=== PATIENT | male | born 1960 | race Caucasian/White ===

== ENCOUNTER 2017-11-18 01:34 | Outpatient (CLI) | payer BC, MEDICARE ==
[~2017-11-18 01:34] MED LIST: ALB0.5UD IH; CHOL500050 PO; COU1T PO; GABA600T2 PO; MORP15TA PO; MORP30TA PO; NADO40TA PO; OMEP40CA37 PO; ONDA4TAB11 PO; PHE12.5T PO; POTA20TA19 PO; VITA400C67 PO; ZINC50TA60 PO; glyburide PO; lasix PO; metformin PO; spironolactone PO; vitamin A PO
== END 2017-11-18 23:59 | disposition home or self-care (01) ==
LOC: DIABETIC 01:34
PROVIDERS: ATTEND General Practice
DX: E11.65 Type 2 diabetes mellitus with hyperglycemia (principal); I10 Essential (primary) hypertension; Z85.05 Personal history of malignant neoplasm of liver
CPT/HCPCS: G0108

== ENCOUNTER 2019-02-24 09:52 | Inpatient (IN) | payer BC, MEDICARE, OTHER | END 2019-02-26 13:00 | disposition home or self-care (01) | LOC: ER 09:52 → ED HOLD 12:12 → PCU 3S 19:17 ==

== ENCOUNTER 2023-02-13 10:48 | Day surgery (SDC) | payer OTHER ==
[~2023-02-13] VITALS: Ht 180.3 cm; Wt 90.3 kg
[2023-02-13] VITALS (21 sets, daily range): BP systolic 131–181; BP diastolic 51–102
[~2023-02-13 10:48] MED LIST changes: -ALB0.5UD IH; +AMLO5TAB16 PO; +ASPI-611 PO; -COU1T PO; -GABA600T2 PO; +HYDR100T27 PO; +HYDR25TA4 PO; +LOSA50TA64 PO; +METF-900 PO; +MORP-92 PO; -MORP30TA PO; +MULT-620 PO; +MYCO250C46 PO; -NADO40TA PO; -OMEP40CA37 PO; +ONDA-103 PO; -ONDA4TAB11 PO; +PANT40TA54 PO; -PHE12.5T PO; -POTA20TA19 PO; +ROSU5TAB PO; +TACR1CAP PO; -VITA400C67 PO; -ZINC50TA60 PO; -glyburide PO; -lasix PO; -metformin PO; -spironolactone PO; -vitamin A PO
[2023-02-13] MEDS ORDERED: ASCO500C17 PO (11:34)
[2023-02-13] MEDS ORDERED: FLUD0.1T PO (11:34)
[2023-02-13] MEDS ORDERED: LIDO1ADH67 TOP (11:34)
[2023-02-13] MEDS ORDERED: CLON0.1T2 PO (11:34)
[2023-02-13] MEDS ORDERED: ZINC50CA2 PO (11:34)
[2023-02-13] MEDS ORDERED: GABA600T13 PO (11:34)
[2023-02-13] MEDS ORDERED: FURO20TA4 PO (11:34)
[2023-02-13] MEDS ORDERED: ONDA4TAB12 PO (11:34)
[2023-02-13] MEDS ORDERED: AMLO10TA48 PO (11:35)
[2023-02-13 11:43] LABS: BASOPHILS # (AUTO) 0.1 X10'3 (0-0.2); BASOPHILS % (AUTO) 0.9 % (0-1); EOSINOPHILS # (AUTO) 0.5 X10'3 (0-0.9); EOSINOPHILS % (AUTO) 7.1 % (0-6); HEMATOCRIT 34.6 % (42.0-52.0); HEMOGLOBIN 11.4 g/dl (14.0-17.9); LYMPHOCYTES # (AUTO) 1.7 X10'3 (1.1-4.8); LYMPHOCYTES % (AUTO) 21.7 % (21-51); MEAN CORPUSCULAR HEMOGLOBIN 27.2 PG (27.0-31.0); MEAN CORPUSCULAR HGB CONC 32.9 g/dL (33.0-36.5); MEAN CORPUSCULAR VOLUME 82.8 FL (78-98); MEAN PLATELET VOLUME 7.2 FL (7.4-10.4); MONOCYTES # (AUTO) 0.7 X10'3 (0-0.9); MONOCYTES % (AUTO) 8.8 % (2-12); NEUTROPHILS # (AUTO) 4.7 X10'3 (1.8-7.7); NEUTROPHILS % (AUTO) 61.5 % (42-75); PLATELET COUNT 328 X10'3 (140-440); RED BLOOD COUNT 4.17 X10'6 (4.70-6.10); RED CELL DISTRIBUTION WIDTH 14.4 % (11.5-14.5); WHITE BLOOD COUNT 7.7 X10'3 (4.5-11.0)
[2023-02-13 11:55] LABS: APTT 26 SECONDS (22-32)
[2023-02-13] MEDS ORDERED: normal saline 1000ml 1,000 ML IV SCH (12:00)
[2023-02-13] MEDS ORDERED: LIDOcaine 1% 30ml preserv. free vial ONE (12:12)
[2023-02-13] MEDS ORDERED: fentaNYL/PF 50MCG/1 ML 2ML syringe ONE (12:20)
[2023-02-13] MEDS ORDERED: midazolam 1 mg/ML 2ml injection ONE (12:20)
[2023-02-13] MEDS ORDERED: gelatin sponge, absorbable (Gelfoam 12-7MM) sponge TP ONE (12:45)
== END 2023-02-13 16:40 | disposition home or self-care (01) ==
LOC: SSTAY O 10:48
PROVIDERS: ATTEND Radiology Vascular & Interventional Radiology
DX: E11.22 Type 2 diabetes mellitus with diabetic chronic kidney disease (principal); I12.9 Hypertensive chronic kidney disease with stage 1 through stage 4 chronic kidney disease, or unspecified chronic kidney disease; N18.30 Chronic kidney disease, stage 3 unspecified; R80.9 Proteinuria, unspecified; E66.9 Obesity, unspecified; Z68.27 Body mass index [BMI] 27.0-27.9, adult; Z87.891 Personal history of nicotine dependence; Z94.4 Liver transplant status; Z79.82 Long term (current) use of aspirin; Z79.899 Other long term (current) drug therapy; Z82.49 Family history of ischemic heart disease and other diseases of the circulatory system; Z83.3 Family history of diabetes mellitus
CPT/HCPCS: 36415; 50200; 77012; 82948; 85025; 85610; 85730; 99152; 99153; J2250; J3010; J3490; J7030; A4615